=== PATIENT | male | born 1960 | race African-American/Black ===

== ENCOUNTER 2021-01-28 11:18 | Emergency (ER) | payer MEDICAID | END 2021-01-28 11:49 | disposition home or self-care (01) | LOC: ERS 11:18 | DX: Z76.0 Encounter for issue of repeat prescription (principal); I11.0 Hypertensive heart disease with heart failure; I50.9 Heart failure, unspecified; I48.91 Unspecified atrial fibrillation; Z79.82 Long term (current) use of aspirin; Z79.899 Other long term (current) drug therapy; Z79.01 Long term (current) use of anticoagulants | CPT/HCPCS: 99281 ==

== ENCOUNTER 2021-05-01 06:44 | Emergency (ER) | payer MEDICAID, OTHER ==
[2021-05-01] MEDS ORDERED: Lidocaine 4% Cream 5 GM TUBE w/ Tegaderm ONE (07:20)
== END 2021-05-01 08:42 | disposition home or self-care (01) ==
LOC: ERS 06:44
DX: L02.31 Cutaneous abscess of buttock (principal); L03.317 Cellulitis of buttock; I11.0 Hypertensive heart disease with heart failure; I50.9 Heart failure, unspecified; Z79.82 Long term (current) use of aspirin; Z79.899 Other long term (current) drug therapy; Z79.01 Long term (current) use of anticoagulants
CPT/HCPCS: 99282

== ENCOUNTER 2021-05-03 06:55 | Emergency (ER) | payer MEDICAID, OTHER ==
[2021-05-03] MEDS ORDERED: Bacitracin 1 PK ONE (07:13)
== END 2021-05-03 07:40 | disposition home or self-care (01) ==
LOC: ERS 06:55
DX: Z48.817 Encounter for surgical aftercare following surgery on the skin and subcutaneous tissue (principal); I11.0 Hypertensive heart disease with heart failure; I50.9 Heart failure, unspecified; Z79.899 Other long term (current) drug therapy
CPT/HCPCS: 99282

== ENCOUNTER 2021-05-06 12:56 | Outpatient (CLI) | payer OTHER | END 2021-05-06 12:57 | disposition home or self-care (01) | LOC: BICRAD 12:56 | PROVIDERS: ATTEND Family Medicine | DX: M54.5 Low back pain (principal) | CPT/HCPCS: 72110 ==

== ENCOUNTER 2021-06-15 11:36 | Emergency (ER) | payer OTHER ==
[2021-06-15] MEDS ORDERED: Lidocaine 1% (PF) 30 ML VIAL ONE (12:46)
== END 2021-06-15 13:37 | disposition home or self-care (01) ==
LOC: ERS 11:36
DX: Z48.817 Encounter for surgical aftercare following surgery on the skin and subcutaneous tissue (principal); I10 Essential (primary) hypertension; I50.9 Heart failure, unspecified; Z79.01 Long term (current) use of anticoagulants; Z79.899 Other long term (current) drug therapy
CPT/HCPCS: 10060; J2001

== ENCOUNTER 2022-03-10 20:36 | Observation (INO) | payer OTHER ==
[2022-03-10 21:11] LABS: #Basophils 0.1 thou/uL (0.0-0.2); #Eosinphils 0.1 thou/uL (0.0-0.7); #Lymphocytes 2.2 thou/uL (1.20-3.40); #Monocytes 0.8 thou/uL (0.11-0.59); #Neutrophils 2.7 thou/uL (1.40-6.50); %Basophils 1.2 % (0.0-1.0); %Eosinophils 1.2 % (0.0-10.0); %Lymphocytes 37.9 % (21.0-51.0); %Monocytes 13.5 % (0.0-10.0); %Neutrophils 46.3 % (42.0-75.0); Hemoglobin 16.4 g/dL (14.0-18.0); Mean Corpuscular HGB CONC 33.5 g/dL (32.0-36.0); Mean Corpuscular Hemoglobin 33.2 pg (27.0-31.0); Mean Corpuscular Volume 99.1 fL (78.0-98.0); Mean Platelet Volume 7.4 fL (7.4-10.4); Platelet Count 255 thou/uL (130-400); RBC Distribution Width 13.6 % (11.5-14.5); Red Blood Cell (RBC) Count 4.95 mill/uL (4.70-6.10); White Blood Cell (WBC) Count 5.9 thou/uL (4.8-10.8)
[2022-03-10 21:31] LABS: ALT (SGPT) 41 U/L (8-55); AST (SGOT) 33 U/L (5-34); Albumin 4.2 g/dL (3.5-5.0); Alkaline Phosphatase 109 U/L (40-110); Anion Gap 14 mmol/L (10-20); BUN (Urea Nitrogen) 27 mg/dL (8.4-25.7); Bilirubin, Total 0.4 mg/dL (0.2-1.2); Calc. Creatinine Clearance 0 mL/min (70-130); Carbon Dioxide 27 mmol/L (22-29); Chloride 105 mmol/L (98-107); Glucose 106 mg/dL (70-105); Potassium 4.6 mmol/L (3.5-5.1); Protein, Total 7.2 g/dL (6.0-8.3); Sodium 141 mmol/L (136-145)
[2022-03-10] MEDS ORDERED: Aspirin 325 MG TAB ONE (23:15)
[2022-03-11 00:58] VITALS: BMI 22.4
[2022-03-11 01:02] LABS: Troponin I 0.013 ng/mL (< 0.028)
[2022-03-11 04:09] LABS: Troponin I 0.012 ng/mL (< 0.028)
[2022-03-11] MEDS ORDERED: Acetaminophen 325 MG TAB PO PRN (05:03)
[2022-03-11] MEDS ORDERED: Ondansetron ODT 4 MG TAB PO PRN (05:03)
[2022-03-11] MEDS ORDERED: Acetaminophen 650 MG Suppository PR PRN (05:03)
[2022-03-11] MEDS ORDERED: Ondansetron PF 4 MG/2 ML Vial IVP PRN (05:03)
[2022-03-11 05:51] LABS: #Eosinphils 0.1 thou/uL (0.0-0.7); #Lymphocytes 2.3 thou/uL (1.20-3.40); #Monocytes 0.7 thou/uL (0.11-0.59); #Neutrophils 2.2 thou/uL (1.40-6.50); %Basophils 0.7 % (0.0-1.0); %Eosinophils 1.8 % (0.0-10.0); %Monocytes 13.1 % (0.0-10.0); %Neutrophils 40.4 % (42.0-75.0); Hemoglobin 16.1 g/dL (14.0-18.0); Mean Corpuscular HGB CONC 32.6 g/dL (32.0-36.0); Mean Corpuscular Hemoglobin 32.5 pg (27.0-31.0); Mean Corpuscular Volume 99.8 fL (78.0-98.0); Mean Platelet Volume 7.3 fL (7.4-10.4); Platelet Count 220 thou/uL (130-400); RBC Distribution Width 13.8 % (11.5-14.5); Red Blood Cell (RBC) Count 4.96 mill/uL (4.70-6.10); White Blood Cell (WBC) Count 5.3 thou/uL (4.8-10.8)
[2022-03-11] MEDS ORDERED: Furosemide 40 MG TAB PO PRN (06:11)
[2022-03-11] MEDS ORDERED: hydrOXYzine 25 MG TAB PO PRN (06:22)
[2022-03-11 06:33] LABS: Anion Gap 14 mmol/L (10-20); BUN (Urea Nitrogen) 24 mg/dL (8.4-25.7); Calc. Creatinine Clearance 55 mL/min (70-130); Carbon Dioxide 24 mmol/L (22-29); Chloride 105 mmol/L (98-107); Glucose 102 mg/dL (70-105); Potassium 3.9 mmol/L (3.5-5.1); Sodium 139 mmol/L (136-145)
[2022-03-11] MEDS ORDERED: Sodium Chloride 0.9% 1,000 ML IV SCH (07:45)
[2022-03-11] MEDS ORDERED: Carvedilol 25 MG TAB PO SCH (08:00)
[2022-03-11 08:01] VITALS: TEMP 97.9
[2022-03-11] MEDS ORDERED: Apixaban 5 MG TAB PO SCH (09:00)
[2022-03-11] MEDS ORDERED: Aspirin Chewable 81 MG TAB PO SCH (09:00)
[2022-03-11] MEDS ORDERED: Hydrochlorothiazide 25 MG TAB PO SCH (09:00)
[2022-03-11] MEDS ORDERED: Citalopram 10 MG TAB PO SCH (09:00)
[2022-03-11] MEDS ORDERED: Lactated Ringer's 1,000 ML IV SCH (09:30)
[2022-03-11] MEDS: traMADol HCl 50 MG TAB PO SCH ×2 (09:40→14:10)
[2022-03-11 11:43] VITALS: BP 109/66
[2022-03-11 12:19] LABS: SARS-CoV-2 PCR by NAA Not Detected (NotDetected)
== END 2022-03-11 15:00 | disposition left against medical advice (07) ==
LOC: ERS 20:36 → 2SW 03-11 00:15
PROVIDERS: ADMIT Hospitalist; ATTEND Hospitalist
DX: R07.89 Other chest pain (principal); I13.0 Hypertensive heart and chronic kidney disease with heart failure and stage 1 through stage 4 chronic kidney disease, or unspecified chronic kidney disease; N18.9 Chronic kidney disease, unspecified; I50.20 Unspecified systolic (congestive) heart failure; Z53.29 Procedure and treatment not carried out because of patient's decision for other reasons; Z79.01 Long term (current) use of anticoagulants; Z79.899 Other long term (current) drug therapy; Z95.810 Presence of automatic (implantable) cardiac defibrillator; Z20.822 Contact with and (suspected) exposure to COVID-19
CPT/HCPCS: 36415; 71045; 80048; 80053; 83735; 84484; 85025; 93005; 93010; G0378; J7120; U0003; U0005

== ENCOUNTER 2024-01-02 03:58 | Emergency (ER) | payer OTHER ==
[2024-01-02 04:38] LABS: #Eosinphils 0.1 thou/uL (0.0-0.7); #Monocytes 0.9 thou/uL (0.11-0.59); #Neutrophils 3.9 thou/uL (1.40-6.50); %Basophils 0.2 % (0.0-1.0); %Eosinophils 1.1 % (0.0-10.0); %Lymphocytes 22.2 % (21.0-51.0); %Monocytes 13.7 % (0.0-10.0); %Neutrophils 62.5 % (42.0-75.0); Hematocrit 54.7 % (42.0-52.0); Hemoglobin 18.7 g/dL (14.0-18.0); Mean Corpuscular HGB CONC 34.2 g/dL (32.0-36.0); Mean Corpuscular Hemoglobin 32.5 pg (27.0-31.0); Mean Platelet Volume 9.8 fL (7.4-10.4); Platelet Count 235 10x3/uL (130-400); RBC Distribution Width 15.4 % (11.5-14.5); Red Blood Cell (RBC) Count 5.76 mill/uL (4.70-6.10); White Blood Cell (WBC) Count 6.3 10x3/uL (4.8-10.8)
[2024-01-02 05:11] LABS: Troponin I 0.047 ng/mL (< 0.028)
[2024-01-02 05:12] LABS: ALT (SGPT) 76 U/L (8-55); AST (SGOT) 63 U/L (5-34); Alkaline Phosphatase 80 U/L (40-110); Anion Gap 13 mmol/L (10-20); BUN (Urea Nitrogen) 27 mg/dL (8.4-25.7); Bilirubin, Total 0.9 mg/dL (0.2-1.2); Calc. Creatinine Clearance 0 mL/min (70-130); Calcium 9.5 mg/dL (7.8-10.44); Carbon Dioxide 28 mmol/L (23-31); Chloride 101 mmol/L (98-107); Estimated GFR 48; Glucose 139 mg/dL (80-115); Potassium 4.4 mmol/L (3.5-5.1); Sodium 138 mmol/L (136-145)
[2024-01-02] MEDS ORDERED: Furosemide 40 MG TAB ONE ×2 (05:43→05:47)
[2024-01-02] MEDS ORDERED: Furosemide 20 MG (2 mL) VIAL ONE (05:46)
== END 2024-01-02 05:50 | disposition home or self-care (01) ==
LOC: ERS 03:58
DX: I11.0 Hypertensive heart disease with heart failure (principal); I50.9 Heart failure, unspecified; R06.01 Orthopnea; Z55.6 Problems related to health literacy; Z79.899 Other long term (current) drug therapy
CPT/HCPCS: 36415; 71045; 80053; 83880; 84484; 85025; 93005; J1940